=== PATIENT | male | born 1995 | race Caucasian/White ===

== ENCOUNTER 2021-11-11 20:16 | Emergency (ER) | payer OTHER ==
[2021-11-11] MEDS ORDERED: SODIUM CHLORIDE 0.9% 1,000 ML IV STA (21:25)
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
[2021-11-11] MEDS ORDERED: LIDOCAINE 1% INJ 10MG/ML (20 ML MDV) SQ ONE (21:58)
[2021-11-11 22:05] LABS: Glucose,Whole Blood 130 mg/dL (70-110)
[2021-11-11 22:05] LABS: Basophils # (A) 0.1 k/uL (0-0.2); Basophils % (A) 1 %; Eosinophils # (A) 0.2 k/uL (0-0.7); Eosinophils % (A) 1 %; HCT 50.4 % (39.0-53.0); HGB 16.2 gm/dL (13.0-17.5); Lymphocytes # (A) 1.4 k/uL (1.0-4.8); Lymphocytes % (A) 8 %; MCH 28.7 pg (25.0-35.0); MCHC 32.2 g/dL (31.0-37.0); Mean Platelet Volume 6.8; Monocytes # (A) 0.9 k/uL (0-1.0); Monocytes % (A) 5 %; Neutrophils # (A) 15.4 k/uL (1.3-7.7); Neutrophils % (A) 86 %; Platelet Count 306 k/uL (150-450); RBC 5.66 m/uL (4.30-5.90); RDW 12.9 % (11.5-15.5); WBC 18.1 k/uL (3.8-10.6)
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
[2021-11-11 22:14] LABS: INR 0.9 (<1.2); Partial Thromboplastin Time 23.9 sec (22.0-30.0); Prothrombin Time 9.7 sec (9.0-12.0)
[2021-11-11] MEDS ORDERED: KETOROLAC 15 MG/ML 1 ML VIAL IVP STA (22:16)
[2021-11-11 22:19] LABS: ALT 43 U/L (4-49); African American GFR (CKD) >90 (>60 ml/min/1.73 sqM); Albumin 5.1 g/dL (3.5-5.0); Alcohol <10 mg/dL; Anion Gap 15 mmol/L; Blood Urea Nitrogen 13 mg/dL (9-20); Calcium 9.8 mg/dL (8.4-10.2); Carbon Dioxide 18 mmol/L (22-30); Chloride 108 mmol/L (98-107); Glucose 115 mg/dL (74-99); Non-African American GFR(CKD) >90 (>60 ml/min/1.73 sqM); Sodium 141 mmol/L (137-145); Total Bilirubin 0.8 mg/dL (0.2-1.3); Total Protein 8.4 g/dL (6.3-8.2)
[2021-11-11 22:35] LABS: Potassium 4.2 mmol/L (3.5-5.1)
[2021-11-11 22:36] LABS: AST 43 U/L (17-59); Alkaline Phosphatase 76 U/L (38-126)
[2021-11-11] MEDS ORDERED: ACET/COD 300 MG/30 MG STARTER PACK 6 TAB BTL PO STA (23:11)
[2021-11-11 23:26] VITALS: BP 137/86; RESP 16; TEMP 98.4
[2021-11-11 23:53] VITALS: PULSE 87
== END 2021-11-11 23:35 | disposition home or self-care (01) ==
LOC: EC 20:16
DX: S01.01XA Laceration without foreign body of scalp, initial encounter (principal); S01.112A Laceration without foreign body of left eyelid and periocular area, initial encounter; S06.0X9A Concussion with loss of consciousness of unspecified duration, initial encounter; F17.290 Nicotine dependence, other tobacco product, uncomplicated; Z91.018 Allergy to other foods; V29.9XXA Motorcycle rider (driver) (passenger) injured in unspecified traffic accident, initial encounter
CPT/HCPCS: 36415; 86900; 86901; 80053; 85025; 85610; 85730; 86850; 80320; 72170; 73080; 71045; 72125; 70486; 70450; 99284; 96365; 96375; 12013; 12002; J0690; J2001; J1885